=== PATIENT | male | born 1960 | race Caucasian/White ===

== ENCOUNTER 2016-08-31 09:02 | Observation (INO) | payer OTHER ==
[~2016-08-31] VITALS: Ht 177.8 cm; Wt 113.0 kg
[~2016-08-31 09:02] MED LIST: CEPHALEXIN500 M2 PO; CLONAZEPAM0.5 MG PO; DIOVAN HCT 3201 EAC1 PO; FISH OIL300 MG PO; LIPITOR40 MG PO; PERCOCET 5/31 TABLET PO
[2016-08-31 09:42] LABS: EOSINOPHIL (%) 2.1 % (0-5); EOSINOPHIL COUNT 0.1 K/uL (0-0.3); HEMATOCRIT 42.1 % (38.0-50.0); IMMATURE GRANULOCYTE (%) 0.2 % (0.0-0.7); IMMATURE GRANULOCYTE COUNT 0.1 K/uL; LYMPHOCYTE COUNT 1.5 K/uL (1.0-2.8); MCH 30.2 PG (29.0-34.0); MCHC 34.9 G/DL (30.0-36.0); MCV 86.6 FL (86-99); MEAN PLAT.VOLUME 9.2 uM^3 (9.0-12.4); MONOCYTE (%) 9.6 % (3-12); MONOCYTE COUNT 0.6 K/uL (0-0.8); NEUTROPHIL (%) 63.4 % (45-76); PLATELET COUNT 267 K/uL (156-360); RBC DIS.WIDTH-CV 13.4 % (11.8-14.6); RBC DIS.WIDTH-SD 40.9 % (39-53); RED BLOOD COUNT 4.86 M/uL (4.00-5.50); WHITE BLOOD COUNT 6.3 K/uL (4.1-10.2)
[2016-08-31 09:47] LABS: CHLORIDE 102 mEq/L (99-109); POTASSIUM 3.1 mEq/L (3.7-5.4); SODIUM 139 mEq/L (136-147)
[2016-08-31 09:50] LABS: D-DIMER ELISA 0.19 mg/L FEU (< 0.57); GLUCOSE 153 mg/dL (70-99)
[2016-08-31 09:51] LABS: ANION GAP 13 MEQ/L (2-14)
[2016-08-31 09:52] LABS: TOTAL BILIRUBIN 0.4 mg/dL (0.0-1.0)
[2016-08-31 09:53] LABS: ALKALINE PHOSPHATASE 89 IU/L (3-129); GFR ESTIMATE (CALCULATED) > 59 mL/min/
[2016-08-31 09:54] LABS: UREA NITROGEN (BUN) 15 mg/dL (9-23)
[2016-08-31 10:06] LABS: TROP-I INTERPRETATION NEGATIVE; TROPONIN-I < 0.01 ng/mL (0.0-0.30)
[2016-08-31] MEDS ORDERED: VALSARTAN160 MG PO (10:30)
[2016-08-31] MEDS ORDERED: LEVOCETIRIZINE D5 MG PO (10:30)
[2016-08-31] MEDS ORDERED: HYDROCHLOROTHIA25 MG PO (10:30)
[2016-08-31] MEDS ORDERED: FLONASE16 G1 BOTH NARES (10:51)
[2016-08-31] MEDS ORDERED: MOTRIN IB200 MG PO (10:51)
[2016-08-31 12:03] VITALS: BP 109/69
[2016-08-31 15:23] VITALS: BP 103/65
[2016-08-31 16:09] LABS: TROP-I INTERPRETATION NEGATIVE; TROPONIN-I 0.01 ng/mL (0.0-0.30)
[2016-08-31 20:00] VITALS: BP 117/72
[2016-08-31 21:35] LABS: TROP-I INTERPRETATION NEGATIVE; TROPONIN-I < 0.01 ng/mL (0.0-0.30)
[2016-09-01] VITALS: BP 110/59
[2016-09-01 04:51] VITALS: BP 115/60
[2016-09-01 06:14] LABS: HEMATOCRIT 42.3 % (38.0-50.0); MCH 29.3 PG (29.0-34.0); MCHC 33.1 G/DL (30.0-36.0); MCV 88.5 FL (86-99); MEAN PLAT.VOLUME 9.1 uM^3 (9.0-12.4); PLATELET COUNT 225 K/uL (156-360); RBC DIS.WIDTH-CV 13.6 % (11.8-14.6); RBC DIS.WIDTH-SD 43.8 % (39-53); RED BLOOD COUNT 4.78 M/uL (4.00-5.50); WHITE BLOOD COUNT 5.9 K/uL (4.1-10.2)
[2016-09-01 06:31] LABS: ANION GAP 8 MEQ/L (2-14); CHLORIDE 99 MEQ/L (99-109); GFR ESTIMATE (CALCULATED) 56 mL/min/; SAMPLE HEMOLYSIS CHECK 0; SAMPLE ICTERIC CHECK 0; SAMPLE LIPEMIA CHECK 0; SODIUM 139 MEQ/L (136-147); UREA NITROGEN (BUN) 16 mg/dL (9-23)
[2016-09-01 06:51] LABS: GLUCOSE 113 mg/dL (70-99); POTASSIUM 3.8 MEQ/L (3.7-5.4)
[2016-09-01 08:24] VITALS: BP 115/70
[2016-09-01] MEDS ORDERED: NITROSTAT0.4 MG SL (10:15)
== END 2016-09-01 10:53 | disposition home or self-care (01) ==
LOC: EME 09:02 → 5WEST 11:04 → EDOF 11:04 → 5WEST 11:51
PROVIDERS: Emergency Medicine; Hospitalist
DX: R07.89 Other chest pain (principal); R94.31 Abnormal electrocardiogram [ECG] [EKG]; J98.11 Atelectasis; I10 Essential (primary) hypertension; E78.5 Hyperlipidemia, unspecified
CPT/HCPCS: 71010; 80048; 80053; 83880; 84484; 85025; 85027; 85379; 87040; 93005; 99281; 99285; G0378; J2270; J2405; J7040